=== PATIENT | male | born 1950 | race Caucasian/White ===

== ENCOUNTER 2017-05-18 10:04 | Day surgery (SDC) | payer OTHER ==
[2017-05-18] MEDS ORDERED: LIDOCAINE 1% 2 ML INJ ID PRN (10:29)
[2017-05-18] MEDS ORDERED: LR 1,000 ML IV ONE (10:29)
[2017-05-18] MEDS ORDERED: LABETALOL HCL 50 MG/10 ML SYR IVP PRN (10:59)
[2017-05-18] MEDS ORDERED: DEXAMETHASONE 4 MG/ML VIAL IVP PRN (10:59)
[2017-05-18] MEDS ORDERED: LR 500 ML IV PRN (10:59)
[2017-05-18] MEDS ORDERED: ONDANSETRON 4 MG/2 ML VIAL IVP PRN (10:59)
[2017-05-18] MEDS ORDERED: NALOXONE HCL 0.4 MG/ML INJ IVP PRN (10:59)
[2017-05-18] MEDS ORDERED: ENALAPRILAT DIHYDRATE 1.25 MG/ML VIAL IVP PRN (10:59)
[2017-05-18] MEDS ORDERED: METOCLOPRAMIDE 10 MG/2 ML VIAL IVP PRN (10:59)
[2017-05-18] MEDS ORDERED: PROMETHAZINE HCL 25 MG/ML INJ IVP PRN (10:59)
--- NOTE | 2017-05-18 10:59 | PDANEPAE ---
ANE Past Medical History - Cardiovascular History Hx Hypertension: Yes Hx Arrhythmias: No Hx Chest Pain: No Hx Coronary Artery / Peripheral Vascular Disease: No Hx CHF / Valvular Disease: No Hx Palpitations: No - Pulmonary History Hx COPD: No Hx Asthma/Reactive Airway Disease: No Hx Recent Upper Respiratory Infection: No Hx Oxygen in Use at Home: No Hx Sleep Apnea: Yes - Neurologic History Hx Cerebrovascular Accident: No Hx Seizures: No Hx Dementia: No - Endocrine History Hx Diabetes: No Obesity: yes, moderate Endocrine History Comment: PRE-DIABETIC - Renal History Hx Renal Disorders: No - Liver History Hx Hepatic Disorders: No - Neurological & Psychiatric Hx Hx Neurological and Psychiatric Disorders: No - Cancer History Hx Cancer: No - Congenital Disorder History Hx Congenital Disorders: No - GI History Hx Gastrointestinal Disorders: Yes Gastrointestinal History Comment: gerd TROUBLE SWALLOWING - Surgical History Prior Surgeries: tURP 2017. CATAARACTS SEP.04 ANE Review of Systems - Exercise capacity METS (RN): 2 METS ANE Patient History - Allergies Allergies/Adverse Reactions: Sulfa (Sulfonamide Antibiotics) Allergy (Verified 05/18/17 10:56) A CHILD - Home Medications Home Medications: Lisinopril 1 tab PO DAILY 05/18/17 [Last Taken 05/17/17] - Smoking Hx Smoking Status: Never smoked - Family Anes Hx Family Hx Anesthesia Complications: NONE ANE Labs/Vital Signs - Vital Signs Height: 175.26 cm Weight: 104.326 kg ANE Physical Exam - Airway Neck exam: decreased ROM, increased neck circumference, short neck Mallampati Score: Class 2 Mouth exam: normal dental/mouth exam - Pulmonary Pulmonary: no respiratory distress, no rales or rhonchi, clear to auscultation - Cardiovascular Cardiovascular: regular rate and rhythym, no murmur, rub, or gallop, pulses symmetric bilaterally - ASA Status ASA Status: III ANE Anesthesia Plan Anesthesia Plan: MAC
[2017-05-18] MEDS ORDERED: PROPOFOL/EMULSION 500 MG/50 ML BOTTLE IV ONE (11:00)
[2017-05-18] MEDS ORDERED: LIDOCAINE 2% 5 ML SDV ONE (11:08)
--- NOTE | 2017-05-18 11:15 | PDGENHP ---
History & Physical Chief Complaint: dysphagia History of Present Illness: dysphagia Pertinent Past, Social, Family History: REDD Relevant Physical Exam: nad. rrr. ctab. s/nt
--- NOTE | 2017-05-18 11:41 | POSTANESTH ---
Post Anesthetic Evaluation Cardiovascular Status: Normal, Stable Respiratory Status: Normal, Stable Level of Consciousness/Mental Status: Can Participate in Eval Pain Control: Adequate, Prn Tx Ordered Nausea/Vomiting Control: Adequate, Prn Tx Ordered Complications Possibly Related to Anesthesia: None Noted
[2017-05-18 12:18] VITALS: TEMP 97.9
--- NOTE | 2017-05-18 13:45 | GPN ---
[f rep st] PROCEDURE NOTE DATE OF PROCEDURE: 05/18/2017 PROCEDURE: Esophagogastroduodenoscopy with dilation and biopsy. INDICATION: Dysphagia. CONSENT: Informed consent was obtained from the patient after an explanation of risks, benefits, an d alternatives to the procedure. MEDICATIONS GIVEN: Per Anesthesia. LEVEL OF SEDATION: Per Anesthesia. DESCRIPTION OF EXAM: After appropriate sedation was obtained, the endoscope was advanced under dire ct vision through the mouth, oropharynx, and as far as the second portion of the duodenum. Retrofle xion was performed in the stomach. Findings are as noted below. ESTIMATED BLOOD LOSS: Minimal. COMPLICATIONS: None. FINDINGS: 1. Esophagus: Grade C esophagitis was seen in the distal esophagus with also mild underlying stric ture, which did not obstruct the scope passage. It was impossible to rule out any underlying malign nika, although there did not obviously appear to be one there. Careful dilation was performed with a 16.5 mm balloon with mild improvement. Biopsies were also taken from the midesophagus to rule out eosinophilic esophagitis. 2. Stomach: Mild gastritis with erythema and congestion in the antrum and body. Biopsies were jaosn en from the antrum and body to assess for H pylori. A small hiatal hernia was present. 3. Duodenum: Multiple duodenal erosions and duodenitis most prominent in the bulb but extending in to the second portion of the duodenal was noted. There was also significant erythema. Biopsies wer e taken from the inflamed areas of the duodenal bulb and second portion to assess for significant pa thology. IMPRESSION: 1. Grade C esophagitis with likely underlying esophageal stricture, likely explains the patient's s ymptoms. This was carefully dilated to 16.5 mm and additionally biopsied as was the midesophagus to rule out EOE. 2. Gastritis and duodenitis, status post biopsies. RECOMMENDATIONS: 1. 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 2. Repeat upper endoscopy with anesthesia in 4-6 weeks to confirm healing, assess for De La Fuente's, an d rule out malignancy in the distal esophagus. 3. If H pylori is found on biopsies, this will be treated. 4. Patient will resume his other home medications, and we will call him once biopsy results are kenzie ilable. /[id number]/MODL
[2017-05-18 13:52] VITALS: BP 146/85; PULSE 62; RESP 16; O2SAT 93
== END 2017-05-18 13:30 | disposition home or self-care (01) ==
LOC: FSGY 10:04
PROVIDERS: ATTEND Internal Medicine
PROC: 0DB68ZX Excision of Stomach, Via Natural or Artificial Opening Endoscopic, Diagnostic (ICD-10-PCS; principal; 2017-05-18 11:15)
PROC: 0DB28ZX Excision of Middle Esophagus, Via Natural or Artificial Opening Endoscopic, Diagnostic (ICD-10-PCS; principal; 2017-05-18 11:15)
PROC: 0DB98ZX Excision of Duodenum, Via Natural or Artificial Opening Endoscopic, Diagnostic (ICD-10-PCS; principal; 2017-05-18 11:15)
PROC: 0DB58ZX Excision of Esophagus, Via Natural or Artificial Opening Endoscopic, Diagnostic (ICD-10-PCS; principal; 2017-05-18 11:15)
DX: K29.80 Duodenitis without bleeding (principal); K29.50 Unspecified chronic gastritis without bleeding; K20.9 Esophagitis, unspecified
CPT/HCPCS: 43239; C1726; J2704

== ENCOUNTER 2017-06-29 07:40 | Day surgery (SDC) | payer OTHER ==
[2017-06-29] MEDS ORDERED: LIDOCAINE 1% 2 ML INJ ID PRN (08:20)
[2017-06-29] MEDS ORDERED: LR 1,000 ML IV ONE (08:20)
[2017-06-29] MEDS ORDERED: ONDANSETRON 4 MG/2 ML VIAL IVP PRN (08:51)
[2017-06-29] MEDS ORDERED: ACETAMINOPHEN 500 MG TAB PO PRN (08:51)
[2017-06-29] MEDS ORDERED: NALOXONE HCL 0.4 MG/ML INJ IVP PRN (08:51)
[2017-06-29] MEDS ORDERED: fentaNYL 100 MCG/2 ML INJ IVP PRN ×2 (08:51)
--- NOTE | 2017-06-29 08:52 | PDANEPAE ---
ANE History of Present Illness EGD ANE Past Medical History - Cardiovascular History Hx Hypertension: Yes Hx Arrhythmias: No Hx Chest Pain: No Hx Coronary Artery / Peripheral Vascular Disease: No Hx CHF / Valvular Disease: No Hx Palpitations: No - Pulmonary History Hx COPD: No Hx Asthma/Reactive Airway Disease: No Hx Recent Upper Respiratory Infection: No Hx Oxygen in Use at Home: No Hx Sleep Apnea: Yes Sleep Apnea Screening Result - Last Documented: Positive Pulmonary History Comment: REDD POSITIVE - Neurologic History Hx Cerebrovascular Accident: No Hx Seizures: No Hx Dementia: No - Endocrine History Hx Diabetes: No Endocrine History Comment: PRE-DIABETIC - Renal History Hx Renal Disorders: Yes Renal History Comment: HX OF TURP - Liver History Hx Hepatic Disorders: No - Neurological & Psychiatric Hx Hx Neurological and Psychiatric Disorders: No - Cancer History Hx Cancer: No - Congenital Disorder History Hx Congenital Disorders: No - GI History Hx Gastrointestinal Disorders: Yes Gastrointestinal History Comment: GERD. DIFFICULTY SWALLOWING - Other Health History Other Health History: WEARS BILATERAL HEARING AIDES. WEARS GLASSES - Chronic Pain History Chronic Pain: No - Surgical History Prior Surgeries: EGD WITH BALLOON DILATION WITH SUSNOW 05/18/17. tURP 2016. CATAARACTS SEP.04 ANE Review of Systems Review of systems is: negative - Exercise capacity METS (RN): 4 METS ANE Patient History - Allergies Allergies/Adverse Reactions: Sulfa (Sulfonamide Antibiotics) Allergy (Unknown, Verified 06/08/17 11:36) A CHILD Morpholine Analogues Allergy (Verified 06/08/17 11:36) Itching - Home Medications Home Medications: Amlodipine Besylate 05/18/17 [Last Taken 06/28/17 08:00] Lisinopril 05/18/17 [Last Taken 06/28/17 08:00] Naproxen 05/18/17 [Last Taken 05/11/17] Tylenol 05/18/17 [Last Taken 05/17/17] Zyrtec 05/18/17 [Last Taken 06/28/17 08:00] CeleBREX 06/08/17 [Last Taken 1 Week Ago] - NPO status NPO Since - Liquids (Date): 06/28/17 NPO Since - Liquids (Time): 22:00 NPO Since - Solids (Date): 06/28/17 NPO Since - Solids (Time): 21:00 - Smoking Hx Smoking Status: Never smoked - Family Anes Hx Family Hx Anesthesia Complications: NONE ANE Labs/Vital Signs - Vital Signs Blood Pressure: 115/76 Heart Rate: 69 Respiratory Rate: 14 O2 Sat (%): 93 Height: 175.26 cm Weight: 104.326 kg ANE Physical Exam - Airway Neck exam: FROM Mallampati Score: Class 2 Mouth exam: normal dental/mouth exam - Pulmonary Pulmonary: clear to auscultation - Cardiovascular Cardiovascular: regular rate and rhythym - ASA Status ASA Status: III ANE Anesthesia Plan Anesthesia Plan: GA with mask
--- NOTE | 2017-06-29 09:46 | PDGENHP ---
History & Physical Chief Complaint: hx esophagiits Relevant Physical Exam: NAD Cardiorespiratory Assessment: RRR. ctab
[2017-06-29] MEDS ORDERED: LIDOCAINE 2% 5 ML SDV ONE (09:56)
[2017-06-29] MEDS ORDERED: PROPOFOL/EMULSION 500 MG/50 ML BOTTLE IV ONE (09:56)
--- NOTE | 2017-06-29 10:24 | POSTANESTH ---
Post Anesthetic Evaluation Cardiovascular Status: Normal, Stable Respiratory Status: Normal, Stable Level of Consciousness/Mental Status: Can Participate in Eval, Alert and Oriented Pain Control: Adequate, Prn Tx Ordered Nausea/Vomiting Control: Adequate, Prn Tx Ordered Complications Possibly Related to Anesthesia: None Noted
[2017-06-29 10:25] VITALS: TEMP 97.5
[2017-06-29 10:35] VITALS: PULSE 64
[2017-06-29 11:19] VITALS: BP 126/81; RESP 16
[2017-06-29 11:21] VITALS: O2SAT 97
--- NOTE | 2017-06-29 11:32 | GPN ---
[f rep st] PROCEDURE NOTE DATE OF PROCEDURE: 06/29/2017 PROCEDURE: EGD with biopsy and dilation. INDICATION: 67-year-old male with a history of grade C esophagitis and dysphagia. Procedure is klever ng done today to followup on healing and assess for De La Fuente's or malignancy. CONSENT: Informed consent was obtained from the patient after an explanation of risks, benefits, an d alternatives to the procedure. MEDICATIONS GIVEN: Propofol per Anesthesia. DESCRIPTION OF EXAM: After adequate sedation was achieved, the forward viewing endoscope was advanc ed through the oropharynx and as far as the 2nd portion of the duodenum. Retroflexion was performed in the stomach. Views were good. Patient tolerance of the procedure was good. ESTIMATED BLOOD LOSS: None. COMPLICATIONS: None at the time of the procedure. FINDINGS: 1. Esophagus was notable for a mild stricture just about 1 cm above the GE junction. There also ap peared to be short-segment De La Fuente's, likely less than 1 cm total, although amount of involvement by De La Fuente's is difficult to ascertain as there was a hiatal hernia present. The top of the Z-line wa s biopsied to rule out De La Fuente's esophagus in all 4 quadrants. The stricture was dilated to 20 mm w ith an esophageal balloon with significant improvement afterwards. 2. Stomach was notable for the presence of a small hiatal hernia. Gastritis was noted in the body and antrum of the stomach and was biopsied to rule out H. pylori or other conditions. 3. Duodenum was notable for some nodular mucosa with some small erosions. This was again biopsied to see if there will be improvement of biopsies versus his previous EGD. 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 The stricture was enough that I think it would cause issues at some point in the futu re if not dilated and therefore was dilated to 20 mm with a balloon. Also, biopsies were taken in t he stomach and duodenum for esophagitis and a hiatal hernia that is small that is present. RECOMMENDATIONS: 1. Await biopsy results. 2. Tentative plan would be repeat endoscopy in approximately 5 years if De La Fuente's esophagus is conf irmed. 3. Continue PPI long-term. 4. Avoid NSAIDs if possible over the next 2 weeks to reduce the risk of bleeding. He does take nap roxen, and I will discuss with him that avoidance is preferable, but if the pain that he takes it fo r is moderate or severe, it is reasonable to take it. /[id number]/MODL
== END 2017-06-29 11:20 | disposition home or self-care (01) ==
LOC: FSGY 07:40
PROVIDERS: ATTEND Internal Medicine
PROC: 0DB68ZX Excision of Stomach, Via Natural or Artificial Opening Endoscopic, Diagnostic (ICD-10-PCS; principal; 2017-06-29 09:00)
PROC: 0D758ZZ Dilation of Esophagus, Via Natural or Artificial Opening Endoscopic (ICD-10-PCS; principal; 2017-06-29 09:00)
PROC: 0DB98ZX Excision of Duodenum, Via Natural or Artificial Opening Endoscopic, Diagnostic (ICD-10-PCS; principal; 2017-06-29 09:00)
DX: K22.2 Esophageal obstruction (principal); K20.9 Esophagitis, unspecified; K44.9 Diaphragmatic hernia without obstruction or gangrene
CPT/HCPCS: 43249; 43251; C1726; J2704